=== PATIENT | male | born 1975 | race Caucasian/White ===

== ENCOUNTER 2016-12-03 12:00 | Inpatient (IN) | payer OTHER ==
--- NOTE | ~2016-12-03 | CO ---
Unit #: [id number] #: [id number] Patient: JONATHAN RUANO [id number] [place] [address] [id number] I MR#: [id number] NAME: JONATHAN RUANO ROOM: [facility] Age: 41 Sex: M Admission Date: 12/03/2016 : 1975 Attending Physician: Derrick Mace M.D. Primary Care Physician: Generic Doctor Not In System Consultation Date: 12/06/2016 CONSULTATION REPORT JOB NOTE: DICTATED FOR NOT DICTATED SUBJECTIVE Jonathan is a 41-year-old who woke up and complained of a sore throat. He has no complaints of discharge, ear pain, cough, shortness of breath, and there have been no recorded increased temperatures. A strep screen was done and it was positive. He was given Bicillin 1.2 million units IM. Dictated by... Leslie Magana P.A.-C. for Di Yates/briana TD: 12/07/2016 17:30 JOB #: [id number] CONSULTATION REPORT Page 1 of 1 X Leslie Magana CONSULTATION REPORT
--- NOTE | ~2016-12-03 | PN ---
Unit #: [id number] #: [id number] Patient: JONATHAN NIEVES [id number] [facility] [address] [place] [address] [id number] I MR#: [id number] NAME: JONATHAN NIEVES ROOM: [facility] Age: 41 Sex: M Admission Date: 12/03/2016 : 1975 Attending Physician: Derrick Mace M.D. Admitting Physician: Derrick Mace M.D. Primary Care Physician: Generic Doctor Not In System [facility] PROGRESS NOTES DATE OF SERVICE 12/05/16 DISCUSSION Jonathan Nieves is a 41-year-old male seen on 12/05/16. Patient interviewed, chart reviewed. I obtained information from nursing staff. Patient reporting feeling sad, dysphoric, anxious. Denied any suicidal ideation, but withdrawn, isolative, anxious, having problems with anxiety. COMPLETE REVIEW OF SYSTEMS Unremarkable. MENTAL STATUS EXAMINATION GENERAL APPEARANCE: Patient dressed casually. ATTENTION SPAN AND CONCENTRATION: Fair. Oriented in place and person. MOOD AND AFFECT: Sad, dysphoric. SPEECH: Monotone. THOUGHT PROCESS: [place]. Patient denied any thoughts of harming self or others. RECENT AND REMOTE MEMORY: Poor. INSIGHT AND JUDGMENT: Poor. DIAGNOSIS Major depressive disorder, recurrent Alcohol use disorder, severe ASSESSMENT/PLAN Advised to continue with current medication and therapeutic protocol. If needed, consider further adjustment in medication. Dictated by... Di Reyes/melvin TD: 12/06/2016 23:00 JOB #: [id number] Unit #: [id number] #: [id number] Patient: JONATHAN NIEVES PROGRESS NOTES Page 1 of 1 X Derrick Mace MD X PROGRESS NOTE
--- NOTE | ~2016-12-03 | PN ---
Unit #: [id number] #: [id number] Patient: JONATHAN RUANO [id number] [facility] [address] [place] [address] [id number] I MR#: [id number] NAME: JONATHAN RUANO ROOM: [facility] Age: 41 Sex: M Admission Date: 12/03/2016 : 1975 Attending Physician: Derrick Mace M.D. Admitting Physician: Derrick Mace M.D. Primary Care Physician: Generic Doctor Not In System [facility] PROGRESS NOTES DATE OF SERVICE 12/06/16 DISCUSSION Mr. Portillo is a 41-year-old male seen on 12/06/16. Patient interviewed, chart reviewed, I obtained information from nursing staff. Patient compliant, cooperative. Mood sad, dysphoric. Patient denied any thoughts of harming self or others, making progress but still having above-mentioned symptoms, anxious about going to 30-day program. COMPLETE REVIEW OF SYSTEMS Unremarkable. MENTAL STATUS EXAMINATION GENERAL APPEARANCE: Patient dressed casually. ATTENTION SPAN AND CONCENTRATION: Fair. Oriented in time, place and person. MOOD AND AFFECT: Labile. SPEECH: Monotone. THOUGHT PROCESS: [place]. Patient denied any thoughts of harming self or others, but guarded. RECENT AND REMOTE MEMORY: Poor. INSIGHT AND JUDGMENT: Poor. DIAGNOSES Major depressive disorder, recurrent Alcohol use disorder, severe ASSESSMENT/PLAN Advised to continue with current medication and therapeutic protocol. If needed, consider further adjustment in medication. Dictated by... Di Reyes/melvin TD: 12/07/2016 03:12 JOB #: [id number] Unit #: [id number] #: [id number] Patient: JONATHAN RUANO PROGRESS NOTES Page 1 of 1 X Derrick Mace MD X PROGRESS NOTE
--- NOTE | ~2016-12-03 | HP ---
Unit #: [id number] #: [id number] Patient: JONATHAN RUANO [id number] [facility] [address] [place] [address] [id number] I MR#: [id number] NAME: JONATHAN RUANO ROOM: [facility] Age: 41 Sex: M Admission Date: 12/03/2016 : 1975 Attending Physician: Derrick Mace M.D. Admitting Physician: Derrick Mace M.D. Primary Care Physician: Generic Doctor Not In System HISTORY AND PHYSICAL HISTORY OF PRESENT ILLNESS Jonathan is a 41 year old, admitted to [facility], because of his abuse of alcohol. PAST MEDICAL HISTORY Long history of alcohol abuse. PAST SURGICAL HISTORY Nothing reported. ALLERGIES No known drug allergies. SOCIAL HISTORY He dips a can of snuff on a daily basis, drinks at least three beers on a daily basis, and 18 to 24 on weekends. He denies illicit drug use. FAMILY HISTORY Medically noncontributory. REVIEW OF SYSTEMS CONSTITUTIONAL: No fever or chills. HEENT: Denies any sore throat, ear pain or runny nose. CARDIOVASCULAR: Denies chest pain, irregular heart rhythm or palpitations. CHEST: Denies shortness of breath or cough. No hemoptysis. GASTROINTESTINAL: Denies nausea, vomiting, diarrhea or chronic constipation. ENDOCRINE: Denies history of increased thirst or urination. No recent significant weight loss or gain. GENITOURINARY: Denies dysuria, frequency, or hematuria. SKIN: Denies any rashes. HEMATOLOGIC: Denies history of increased bleeding or bruising. MUSCULOSKELETAL: Denies any hot, swollen joints. No generalized muscle pain. NEUROLOGIC: Denies problems with vision or speech. No frequent, severe headaches. No numbness, tingling or weakness in any extremities. Denies loss of bladder or bowel control. CURRENT MEDICATIONS Detox protocol. PHYSICAL EXAMINATION GENERAL: Alert, well-nourished, no apparent distress. Unit #: [id number] #: [id number] Patient: JONATHAN RUANO VITAL SIGNS: blood pressure 120/76, heart rate 80, respirations 16, and temperature 98.6. WEIGHT: 182 pounds. HEIGHT: 6 feet 2 inches. SKIN: Warm and dry. He has a vesicular rash behind his knee. Evidence of excoriation. HEENT: Normocephalic. TMs not viewed. Oral and nasal passages clear. Conjunctivae clear. PERRLA. EOMs intact. NECK: Supple without lymphadenopathy or thyromegaly. HEART: Regular rate and rhythm without murmur. LUNGS: Clear. ABDOMEN: Soft, nontender. : Not done. EXTREMITIES: No evidence of cyanosis, clubbing or edema. Moves all without focal deficit. NEUROLOGICAL: Grossly within normal limits. Cranial Nerves: II: Visual rene are intact. III, IV AND : Extraocular movements are intact. Pupils are equal, round and reactive to light. V: Facial sensation is grossly normal. VII: Facial movements and expression are normal. VIII: Auditory acuity grossly intact. IX, X: Uvula is midline. Phonation is normal. XI: Patient shrugs shoulders and turns head normally. XII: Tongue protrudes in the midline. Sensory and Motor Function: Sensory and motor sensation is grossly normal. Motor: moves all extremities well. Coordination: Gait is normal. Deep Tendon Reflexes: Intact. IMPRESSION Psychiatric admission. RECOMMENDATIONS Psychiatric, per psychiatrist. MEDICAL 1. I see no contraindications to participating in facility's activities. 2. Hydrocortisone cream to the rash behind his knee. MEDICAL PROGNOSIS Good. MEDICAL CONDITION Stable. Dictated by... Leslie Magana, P.A.-C. for Di Yates/sylwia TD: 12/04/2016 12:13 JOB #: [id number] Unit #: [id number] #: [id number] Patient: JONATHAN RUANO HISTORY AND PHYSICAL Page 1 of 1 X Leslie Magana HISTORY AND PHYSICAL
--- NOTE | ~2016-12-03 | DS ---
Unit #: [id number] #: [id number] Patient: JONATHAN RUANO [id number] [facility] [address] [place] [address] [id number] I MR#: [id number] NAME: JONATHAN RUANO ROOM: [facility] Age: 41 Sex: M Admission Date: 12/03/2016 : 1975 Discharge Date: 12/07/2016 Attending Physician: Derrick Mace M.D. Primary Care Physician: Generic Doctor Not In System DISCHARGE SUMMARY REASON FOR ADMISSION Depression and alcohol abuse. DIAGNOSTIC STUDIES LABORATORY RESULTS: Urine drug screen positive for benzos. HOSPITAL COURSE The patient was admitted to inpatient unit on 12/03/2016 and discharged on 12/07/2016. The patient was treated on the inpatient unit with detox protocol, detox monitoring, chemical dependency group, expressive therapy, psychoeducation, and psychotherapy. The patient completed detox, maintained safe behavior, and showed improvement in his mood. Subsequently, the patient was discharged with a plan to follow up in outpatient program. DISCHARGE MEDICATIONS Ambien 10 mg at bedtime for sleep, Celexa 40 mg at bedtime for depression, and Vistaril 25 mg t.i.d. for anxiety. DISCHARGE DIAGNOSES Psychiatric: Major depressive disorder, recurrent, severe, F33.2 and alcohol use disorder, severe, F10.20. Secondary diagnosis: Deferred. Medical diagnosis: Chronic back pain. Stressors: Psychosocial stressors. DISCHARGE INSTRUCTIONS The patient to follow up in outpatient clinic as per psychiatric social worker supervisor. CONDITION ON DISCHARGE The patient was pleasant and cooperative. Denied any psychotic symptom or any suicidal ideation. PROGNOSIS Guarded. DIET AND ACTIVITY As tolerated. Unit #: [id number] #: [id number] Patient: JONATHAN RUANO Dictated by... Derrick Mace M.D. SZC/myral TD: 12/07/2016 18:14 JOB #: [id number] DISCHARGE SUMMARY Page 1 of 1 X Derrick Mace MD X DISCHARGE SUMMARY
--- NOTE | ~2016-12-03 | PN ---
Unit #: [id number] #: [id number] Patient: JONATHAN NIEVES [id number] [facility] [address] [place] [address] [id number] MR#: [id number] NAME: JONATHAN NIEVES ROOM: [facility] Age: 41 Sex: M Admission Date: 12/03/2016 : 1975 Attending Physician: Derrick Mace M.D. Admitting Physician: Derrick Mace M.D. Primary Care Physician: Generic Doctor Not In System [facility] PROGRESS NOTES DATE OF SERVICE 12/04/2016 DISCUSSION Jonathan Nieves is a 41-year-old male seen on 12/04/2016. The patient continues to report feeling sad, depressed, anxious. Having suicidal ideation. Denied any plans, but had plans earlier. The patient's vital signs: Stable, 98.4, 54, 117/70. Complete Review of Systems: Unremarkable. MENTAL STATUS EXAMINATION General Appearance: The patient tall, well built. Attention span, concentration: Fair. Oriented in time, place, and person. Mood and affect: Sad, depressed. Speech: Monotone. Thought process: [place]. The patient reported having passive SI. Denied any homicidal ideation. Recent and remote memory: Poor. Insight and judgment: Poor. DIAGNOSES 1. Mood disorder not otherwise specified. 2. Alcohol use disorder, severe. ASSESSMENT/PLAN Advised to continue with current medication and therapeutic protocol. If needed, consider further adjustment of medication. Dictated by... Di Reyes/mago TD: 12/05/2016 12:40 JOB #: [id number] Unit #: [id number] #: [id number] Patient: JONATHAN NIEVES PROGRESS NOTES Page 1 of 1 X Derrick Mace MD X PROGRESS NOTE
--- NOTE | ~2016-12-03 | PA ---
Unit #: [id number] #: [id number] Patient: JONATHAN RUANO [id number] [facility] [address] [place] [address] [id number] MR#: [id number] NAME: JONATHAN RUANO ROOM: [facility] Age: 41 Sex: M Admission Date: 12/03/2016 : 1975 Date of Assessment: Attending Physician: Derrick Mace M.D. Admitting Physician: Derrick Mace M.D. Primary Care Physician: Generic Doctor Not In System PSYCHIATRIC ASSESSMENT INFORMANTS The patient's reliability, fair; chart reliability, good. CHIEF COMPLAINT Depression and alcohol abuse. HISTORY OF PRESENT ILLNESS Mr. Cerna is a 41-year-old male, presented with the above-mentioned complaint. The patient has a history of previous treatment inpatient in [place] in 2011 and 2012, inpatient in [place]. The patient lives at home with his and children. The patient presented due to depression and alcohol abuse. The patient reported currently having suicidal ideation with a plan to overdose on medication and alcohol. The patient drove to [place] and ran away "on Saturday." The patient brought his hand gun and medication in case. He wanted to attempt suicide. The patient continues to express suicidal ideation, hopelessness, worthlessness, drinking almost daily 12 to 18 beers. The patient denied any homicidal ideation or any psychotic symptom. Needing inpatient admission at this time for psychiatric stabilization. PAST PSYCHIATRIC HISTORY Remarkable for history of multiple treatment at [place] in 2011 and 2012, and IOP program at [place] for depression and suicidal ideation and chemical dependency. FAMILY HISTORY AND SOCIAL HISTORY The patient has a good support system. No history of abuse. No legal charges. MEDICAL HISTORY Unremarkable for any chronic medical condition except for back pain. Musculoskeletal; muscle strength and tone, no atrophy or abnormal movement. Gait normal. MEDICATION HISTORY The patient is on Celexa and Ambien combination. ALLERGIES No known drug allergies. SUBSTANCE ABUSE HISTORY The patient reported tobacco use, age of onset 10; alcohol, almost daily. Longest period of sobriety 3 months and last period of sobriety in 2012. Unit #: [id number] #: [id number] Patient: JONATHAN RUANO The patient reported history of blackout. No history of HIV or hepatitis. Currently withdrawal symptoms, minimal. No history of IV drug use. REVIEW OF SYSTEMS HEENT: Eyes, clear. Ears, nose, mouth, and throat; clear. CARDIOVASCULAR: Unremarkable. RESPIRATORY: Unremarkable. GI: Unremarkable. : Unremarkable. SKIN: Unremarkable. LYMPH NODE: Unremarkable. NEUROLOGIC: Unremarkable. ENDOCRINE: Unremarkable. HEMATOLOGIC: Unremarkable. ALLERGIC/IMMUNOLOGIC: Unremarkable. MUSCULOSKELETAL: Muscle strength and tone, no atrophy or abnormal movement. Gait normal. MENTAL STATUS EXAMINATION CONSTITUTIONAL: Measurement of vital signs; temperature 98.1, pulse 54, respirations 16, blood pressure 117/77; height 6 feet 2 inches, weight 182 pounds. GENERAL APPEARANCE: The patient dressed casually. The patient did not show any facial deformity. MUSCULOSKELETAL: Please see above. PSYCHIATRIC EXAMINATION Description of speech; regular rate, normal volume. Description of thought process, goal directed. Description of association, intact. Description of abnormal psychotic thinking; the patient denied any hallucination or delusions, but depression and suicidal ideation and substance abuse. Description of the patient's judgment; concerning everyday activity, poor. Social situation, poor. Concerning psychiatric condition, poor. Complete mental status examination; oriented in time, place, and person. Recent and remote memory, fair. Attention span and concentration, fair. Language, able to name object and repeat phrases. Fund of knowledge, aware of current event and passive vocabulary intact. Mood and affect, sad and depressed. Insight and judgment, fair to poor. ASSETS AND LIABILITIES Assets; the patient is articulate, able to take care of his ADL. Liability; history of alcohol abuse, depression. ADMITTING DIAGNOSES Psychiatric: Major depressive disorder, recurrent, severe, F33.2; alcohol use disorder, severe, F10.20. Secondary diagnosis: Deferred. Medical diagnosis: Chronic back pain. Stressors: Psychosocial stressors. PSYCHIATRIC PLAN AND TREATMENT GOAL 1. Advised to admit the patient on the inpatient unit. Provide safe, supportive, and structured environment. Unit #: [id number] #: [id number] Patient: JONATHAN RUANO 2. Ordered labs; CBC, CMP, UA, and UDS. 3. Detox protocol and detox monitoring. 4. Advised to resume home medication with a plan to increase Celexa to 40 mg daily, add Vistaril 25 mg t.i.d. The patient to attend group therapy, individual therapy, family session. If needed, consider adding Abilify 5 mg at bedtime. Treatment goal to attain euthymic mood, gain insight into his problem, and learn coping skills. The patient to attend all the programing on the inpatient unit. DISCHARGE PLAN Plan to stabilize the patient and consider followup in outpatient program. ESTIMATED LENGTH OF STAY 5 days. Dictated by... Di Reyes/briana TD: 12/05/2016 02:21 JOB #: [id number] PSYCHIATRIC ASSESSMENT Page 1 of 1 X Derrick Mace MD X PSYCHIATRIC ASSESSMENT
[2016-12-04 09:36] LABS: BASOPHIL# 0.1 X10e3 (0-0.3); BASOPHIL% 0.8 % (0-2.5); EOSINOPHIL# 0.1 X10e3 (0-0.7); EOSINOPHIL% 1.5 % (0.0-7.0); HEMATOCRIT 45.8 % (38.0-50.0); HEMOGLOBIN 15.2 gm/dL (13.0-16.0); LYMPHOCYTE# 2.2 X10e3 (1.0-3.5); LYMPHOCYTE% 30.9 % (17.0-45.0); MEAN CORPUSCULAR HEMOGLOBIN 30.2 PG (28-34); MEAN CORPUSCULAR HGB CONC 33.2 g/dL (30-36); MEAN PLATELET VOLUME 9.3 FL (6.5-11.5); MONOCYTE# 0.6 X10e3 (0-1.0); NEUTROPHIL# 4.2 X10e3 (1.5-7.1); NEUTROPHIL% 58.8 % (40-75); PLATELET COUNT 242 X10e3 (140-420); RED BLOOD COUNT 5.03 X10e (3.90-5.60); RED CELL DISTRIBUTION WIDTH 13.1 % (11.0-15.5); WHITE BLOOD COUNT 7.1 X10e3 (4.0-10.5)
[2016-12-04 09:56] LABS: DIFF IND NO
[2016-12-04 10:02] LABS: ALBUMIN SERUM 4.5 g/dL (3.5-5.0); BILIRUBIN,TOTAL 0.9 mg/dL (0.2-2.0); BUN/CREATININE RATIO 15.55; CALCIUM SERUM 9.9 mg/dL (8.4-10.2); CREATININE SERUM 0.9 mg/dL (0.6-1.4); GLOM FILT RATE Estimated 107.2 mL/min (>60); POTASSIUM 4.3 mmol/L (3.5-5.1); PROTEIN TOTAL SERUM 7.1 g/dL (6.0-8.3)
[2016-12-05 12:46] LABS: URINE APPEARANCE CLEAR; URINE BILIRUBIN NEG (NEG); URINE BLOOD NEG (NEG); URINE COLOR DK YELLOW; URINE GLUCOSE NEG (NEG); URINE KETONE NEG (NEG); URINE LEUKOCYTE ESTERASE NEG (NEG); URINE NITRATE NEG (NEG); URINE PH 5.5 (5-8); URINE PROTEIN NEG (NEG); URINE SPECIFIC GRAVITY 1.013 (1.003-1.035); URINE UROBILINOGEN 0.2 MG/DL (NEG)
[2016-12-05 13:03] LABS: AMPHETAMINE NEG (NEG); BARBITURATES NEG (NEG); BENZODIAZEPINES POS (NEG); COCAINE NEG (NEG); MARIJUANA NEG (NEG); OPIATES NEG (NEG); TRICYCLIC ANTIDEPRESSANTS NEG (NEG); U METHADONE NEG (NEG)
== END 2016-12-07 11:20 | DRG 885 ==
LOC: P1E 14:31
PROVIDERS: Psychiatry & Neurology Psychiatry
PROC: HZ2ZZZZ Detoxification Services for Substance Abuse Treatment (ICD-10-PCS; principal; 2016-12-03)
DX: F33.2 Major depressive disorder, recurrent severe without psychotic features (principal); J02.0 Streptococcal pharyngitis; F10.20 Alcohol dependence, uncomplicated; M54.9 Dorsalgia, unspecified; G89.29 Other chronic pain; F17.200 Nicotine dependence, unspecified, uncomplicated
CPT/HCPCS: 80053; 80307; 81003; 85025; 86592; 87880; J0558; J0561